=== PATIENT | male | born 1945 | race Caucasian/White ===

== ENCOUNTER 2022-06-02 09:34 | Day surgery (SDC) | payer MEDICARE, BC ==
[2022-06-01 13:57] LABS: BASOPHILS % (AUTO) 0.6 % (0-1); EOSINOPHILS # (AUTO) 0.2 X10'3 (0-0.9); EOSINOPHILS % (AUTO) 3.9 % (0-6); HEMATOCRIT 33.8 % (42.0-52.0); HEMOGLOBIN 11.3 g/dl (14.0-17.9); LYMPHOCYTES # (AUTO) 1.1 X10'3 (1.1-4.8); LYMPHOCYTES % (AUTO) 23.9 % (21-51); MEAN CORPUSCULAR HEMOGLOBIN 32.1 PG (27.0-31.0); MEAN CORPUSCULAR HGB CONC 33.5 g/dL (33.0-36.5); MEAN CORPUSCULAR VOLUME 95.7 FL (78-98); MEAN PLATELET VOLUME 7.1 FL (7.4-10.4); MONOCYTES # (AUTO) 0.4 X10'3 (0-0.9); MONOCYTES % (AUTO) 9.2 % (2-12); NEUTROPHILS # (AUTO) 2.9 X10'3 (1.8-7.7); NEUTROPHILS % (AUTO) 62.4 % (42-75); PLATELET COUNT 272 X10'3 (140-440); RED BLOOD COUNT 3.53 X10'6 (4.70-6.10); RED CELL DISTRIBUTION WIDTH 13.8 % (11.5-14.5); WHITE BLOOD COUNT 4.7 X10'3 (4.5-11.0)
[2022-06-01 14:06] LABS: ALBUMIN 3.9 G/DL (3.4-5.0); ANION GAP 10 (8-16); BLOOD UREA NITROGEN 34 MG/DL (7-18); BUN/CREATININE RATIO 21.7 (5.4-32.0); CALCIUM 9.5 MG/DL (8.5-10.1); CHLORIDE 104 MMOL/L (99-107); CREATININE 1.57 MG/DL (0.60-1.10); GLUCOSE 229 MG/DL (70-104); POTASSIUM 4.1 MMOL/L (3.5-5.1); SODIUM 141 MMOL/L (135-145); TOTAL CARBON DIOXIDE 27.2 MMOL/L (24-32); eGFR 43 ML/MIN
[2022-06-01 14:11] LABS: APTT 27 SECONDS (22-32)
[~2022-06-02] VITALS: Ht 172.7 cm; Wt 56.1 kg
[2022-06-02] VITALS (12 sets, daily range): BP systolic 116–147; BP diastolic 55–95
[~2022-06-02 09:34] MED LIST: ASPI-612 PO; ATI0.5T PO; CYCL-1 PO; GLIM4TAB7 PO; IRBE150T51 PO; METF-316 PO; SIMV-45 PO
[2022-06-02] MEDS ORDERED: normal saline 1,000 ML IV SCH (09:55)
[2022-06-02] MEDS ORDERED: LIDOcaine/PRILOcaine 5gm cream TP ONE ×2 (09:55→11:00)
[2022-06-02] MEDS ORDERED: LORazepam 0.5 MG tablet PO PRN (09:55)
[2022-06-02] MEDS ORDERED: diphenhydrAMINE 25mg capsule PO PRN (09:55)
[2022-06-02] MEDS ORDERED: APIX5TAB3 PO (10:37)
[2022-06-02] MEDS ORDERED: LISI5TAB22 PO (10:37)
[2022-06-02] MEDS ORDERED: FERR-119 PO (10:43)
[2022-06-02] MEDS ORDERED: ASCO500C17 PO (10:43)
[2022-06-02] MEDS ORDERED: PRAV20TA4 PO (10:43)
[2022-06-02] MEDS ORDERED: SUPER B COMPLEX (10:43)
[2022-06-02] MEDS ORDERED: sodium bicarbonate (8.4%) inj. 150 ML in dextrose 5%-water 1,000 ML IV ONE (10:45)
[2022-06-02] MEDS ORDERED: nitroGLYCERIN-Tridil 50MG/D5W 250 ML IV ONE (11:33)
[2022-06-02] MEDS ORDERED: verapamil 2.5 mg/ml inj IV ONE (11:33)
[2022-06-02] MEDS ORDERED: midazolam 1 mg/ML 2ml injection ONE (11:33)
[2022-06-02] MEDS ORDERED: LIDOcaine 1%/PF 5ML 10 MG/ML VIAL ONE ×2 (11:34)
[2022-06-02] MEDS ORDERED: iohexol 350MG/ML 100ml bottle IV ONE ×3 (11:34→13:20)
[2022-06-02] MEDS ORDERED: heparin 1,000unit/ml 10ml vial 10 ML ONE (11:34)
[2022-06-02] MEDS ORDERED: fentaNYL/PF 50MCG/1 ML 2ML syringe ONE (11:35)
[2022-06-02] MEDS ORDERED: heparin 25,000 UNIT/250ml bag 250 ML IV ONE (12:40)
[2022-06-02] MEDS ORDERED: clopidogrel 300mg tablet ONE (13:23)
[2022-06-02] MEDS ORDERED: clopidogrel 300mg tablet PO ONE (14:35)
[2022-06-02] MEDS ORDERED: normal saline 1000ml 1,000 ML IV SCH (14:35)
== END 2022-06-02 21:10 | disposition home or self-care (01) ==
LOC: SSTAY O 09:34
PROVIDERS: ATTEND Internal Medicine Cardiovascular Disease
DX: I25.10 Atherosclerotic heart disease of native coronary artery without angina pectoris (principal); I10 Essential (primary) hypertension; E78.5 Hyperlipidemia, unspecified; E11.9 Type 2 diabetes mellitus without complications; Z79.899 Other long term (current) drug therapy; Z98.890 Other specified postprocedural states; F41.9 Anxiety disorder, unspecified
CPT/HCPCS: 36415; 80048; 82948; 85025; 85347; 85610; 85730; 93005; 93458; 99152; 99153; C1725; C1751; C1769; C1874; C1894; C9600; C9601; J1644; J2250; J3010; J3490; J7030; Q0163; Q9967; A4620; A5120; A6258; A6402

== ENCOUNTER 2022-07-14 10:04 | Day surgery (SDC) | payer MEDICARE, BC ==
[2022-07-13 16:24] LABS: BASOPHILS % (AUTO) 0.4 % (0-1); EOSINOPHILS # (AUTO) 0.2 X10'3 (0-0.9); EOSINOPHILS % (AUTO) 3.1 % (0-6); HEMATOCRIT 27.7 % (42.0-52.0); HEMOGLOBIN 9.5 g/dl (14.0-17.9); LYMPHOCYTES # (AUTO) 1.1 X10'3 (1.1-4.8); LYMPHOCYTES % (AUTO) 21.6 % (21-51); MEAN CORPUSCULAR HEMOGLOBIN 33.1 PG (27.0-31.0); MEAN CORPUSCULAR HGB CONC 34.4 g/dL (33.0-36.5); MEAN CORPUSCULAR VOLUME 96.3 FL (78-98); MEAN PLATELET VOLUME 7.3 FL (7.4-10.4); MONOCYTES # (AUTO) 0.5 X10'3 (0-0.9); MONOCYTES % (AUTO) 10.2 % (2-12); NEUTROPHILS # (AUTO) 3.2 X10'3 (1.8-7.7); NEUTROPHILS % (AUTO) 64.7 % (42-75); PLATELET COUNT 238 X10'3 (140-440); RED BLOOD COUNT 2.87 X10'6 (4.70-6.10); RED CELL DISTRIBUTION WIDTH 13.5 % (11.5-14.5); WHITE BLOOD COUNT 4.9 X10'3 (4.5-11.0)
[2022-07-13 16:28] LABS: ALBUMIN 3.8 G/DL (3.4-5.0); ANION GAP 9 (8-16); BLOOD UREA NITROGEN 46 MG/DL (7-18); CALCIUM 9.2 MG/DL (8.5-10.1); CHLORIDE 107 MMOL/L (99-107); CREATININE 1.92 MG/DL (0.60-1.10); GLUCOSE 92 MG/DL (70-104); POTASSIUM 4.3 MMOL/L (3.5-5.1); SODIUM 139 MMOL/L (135-145); TOTAL CARBON DIOXIDE 23.4 MMOL/L (24-32); eGFR 34 ML/MIN
[2022-07-13 16:32] LABS: APTT 25 SECONDS (22-32)
[~2022-07-14] VITALS: Ht 172.7 cm; Wt 59.1 kg
[2022-07-14] VITALS (13 sets, daily range): BP systolic 107–161; BP diastolic 44–84
[~2022-07-14 10:04] MED LIST changes: +APIX5TAB3 PO; +ASCO500C17 PO; -ASPI-612 PO; -ATI0.5T PO; -CYCL-1 PO; +FERR-119 PO; -IRBE150T51 PO; +LISI5TAB22 PO; +PRAV20TA4 PO; -SIMV-45 PO; +SUPER B COMPLEX
[2022-07-14] MEDS ORDERED: diphenhydrAMINE 25mg capsule PO PRN (10:30)
[2022-07-14] MEDS ORDERED: LORazepam 0.5 MG tablet PO PRN (10:30)
[2022-07-14] MEDS ORDERED: normal saline 1,000 ML IV SCH (10:30)
[2022-07-14] MEDS ORDERED: verapamil 2.5 mg/ml inj IV ONE (10:47)
[2022-07-14] MEDS ORDERED: fentaNYL/PF 50MCG/1 ML 2ML syringe ONE (10:47)
[2022-07-14] MEDS ORDERED: midazolam 1 mg/ML 2ml injection ONE (10:47)
[2022-07-14] MEDS ORDERED: LIDOcaine 1% 30ml preserv. free vial ONE (10:47)
[2022-07-14] MEDS ORDERED: heparin 1,000unit/ml 10ml vial 10 ML ONE (10:47)
[2022-07-14] MEDS ORDERED: iohexol 350MG/ML 100ml bottle IV ONE ×3 (10:47→11:59)
[2022-07-14] MEDS ORDERED: HEPARIN SOD,PORK IN 0.45% NACL 250 ML IV ONE (10:47)
[2022-07-14] MEDS ORDERED: nitroGLYCERIN-Tridil 50MG/D5W 250 ML IV ONE (10:47)
[2022-07-14] MEDS ORDERED: LORA-268 PEG (10:57)
[2022-07-14] MEDS ORDERED: CLOP75TA34 PO (10:57)
[2022-07-14] MEDS ORDERED: AMLO10TA PO (10:57)
[2022-07-14] MEDS ORDERED: LIDOcaine 1%/PF 5ML 10 MG/ML VIAL ONE (10:59)
[2022-07-14] MEDS ORDERED: sodium bicarbonate (8.4%) 1 mEq/ml syringe IV STA (11:38)
[2022-07-14] MEDS ORDERED: sodium bicarbonate (8.4%) inj. 100 MEQ in dextrose 5%-water 1,000 ML IV SCH (12:00)
[2022-07-14] MEDS ORDERED: clopidogrel 300mg tablet ONE (12:36)
[2022-07-14] MEDS ORDERED: clopidogrel 300mg tablet PO ONE (13:35)
[2022-07-14] MEDS ORDERED: acetylcysteine 200 MG/ml 4ml vial INH ONE (13:40)
[2022-07-14] MEDS ORDERED: ticagrelor 90mg tablet PO SCH (20:00)
[2022-07-16] MEDS ORDERED: clopidogrel 75mg tablet PO SCH (08:00)
== END 2022-07-14 19:20 | disposition home or self-care (01) ==
LOC: SSTAY O 10:04
PROVIDERS: ATTEND Internal Medicine Cardiovascular Disease
DX: I25.10 Atherosclerotic heart disease of native coronary artery without angina pectoris (principal); Z79.01 Long term (current) use of anticoagulants; I10 Essential (primary) hypertension; E78.5 Hyperlipidemia, unspecified; Z79.899 Other long term (current) drug therapy; Z98.890 Other specified postprocedural states
CPT/HCPCS: 36415; 76937; 80048; 85025; 85347; 85610; 85730; 93005; 99152; 99153; A6258; C1725; C1751; C1769; C1874; C1894; C9600; C9601; J1644; J2250; J3010; J3490; J7030; Q0163; Q9967; A5120; A6402